=== PATIENT | female | born 1985 | race Two or more races ===

== ENCOUNTER 2017-07-30 22:58 | Emergency (ER) | payer SELFPAY ==
[2017-07-30 23:02] VITALS: BP 119/70
[2017-07-30] MEDS ORDERED: OXYCODONE-ACETAMINOPHEN 5-325 MG TABLET PO ONE (23:43)
[2017-07-30] MEDS ORDERED: PENICILLIN V POTASSIUM 500 MG TABLET PO ONE (23:43)
--- NOTE | 2017-07-30 23:44 | ER Document Report ---
ED Oral Problem - General Chief Complaint: Toothache Stated Complaint: TOOTHACHE Time Seen by Provider: 07/30/17 23:30 TRAVEL OUTSIDE OF THE U.S. IN LAST 30 DAYS: No - HPI Patient complains to provider of: Toothache - On and off for a month is been worse over the past couple of days Onset: Gradual Quality of pain: Achy, Throbbing Severity: Moderate Context: Fractured tooth. denies: Recent antibiotic use, Recent dental extractions, Recent yeast infection, Other Associated symptoms: Dental decay, Toothache. denies: Chills, Cough, Decreased appetite, Difficulty speaking, Drainage, Drooling, Earache, Facial pain, Fever, Headache, Jaw pain, Short of breath, Sweaty, Tongue swelling, Unable to swallow , White patches in mouth, Other Relieved by: Nothing Similar symptoms previously: No Recently seen / treated by doctor/dentist: No - Related Data Allergies/Adverse Reactions: No Known Allergies Allergy (Verified 07/30/17 23:00) Past Medical History - Social History Smoking Status: Never Smoker Chew tobacco use (# tins/day): No Frequency of alcohol use: None Family History: Reviewed & Not Pertinent Patient has suicidal ideation: No Patient has homicidal ideation: No Renal/ Medical History: Denies: Hx Peritoneal Dialysis Past Surgical History: Reports: Hx Tonsillectomy Review of Systems - Review of Systems Constitutional: No symptoms reported EENT: See HPI -: Yes All other systems reviewed and negative Physical Exam - Vital signs Vitals: Temp Pulse Resp BP Pulse Ox 97.6 F 78 18 119/70 100 07/30/17 23:00 07/30/17 23:00 07/30/17 23:00 07/30/17 23:00 07/30/17 23:00 - General General appearance: Appears well, Alert In distress: None - HEENT Mouth/Lips: Caries - Tooth 29 as well as 3031 and 32 with evidence of diffuse dental caries. No evidence of abscess or drainage., Dental fracture Mucous membranes: Moist Pharynx: Normal. No: Peritonsillar abscess, Retropharyngeal abscess, Potential airway comprom. Neck: Normal, Other - No evidence of Carlos's angina - Respiratory Respiratory status: No respiratory distress Chest status: Nontender Breath sounds: Normal Chest palpation: Normal - Cardiovascular Rhythm: Regular Heart sounds: Normal auscultation, S1 appreciated, S2 appreciated Gallop: None auscultated Course - Re-evaluation Re-evalutation: 07/31/17 01:32 Presentation is most consistent with likely an infected tooth. Airway is patent. Vitals within normal limits. Patient is able swallow without any difficulty. There is no significant facial swelling. Patient will be started on antibiotics. I've instructed to follow-up with dentistry as earliest ability for definitive management. Return precautions and follow-up recommendations have been discussed at length. - Vital Signs Vital signs: Temp Pulse Resp BP Pulse Ox 97.6 F 78 18 119/70 100 07/30/17 23:00 07/30/17 23:00 07/30/17 23:00 07/30/17 23:00 07/30/17 23:00 Discharge - Discharge Clinical Impression: Toothache Condition: Good Disposition: HOME, SELF-CARE Additional Instructions: TOOTHACHE: Your pain is due to dental decay. The tooth must be repaired in order for you to feel better. You will, therefore, be referred to a dentist. We do not have dentists on the staff at [facility]. Severe swelling or drainage around a tooth usually means a dental abscess. This also requires evaluation and treatment by the dentist, but antibiotics may be prescribed while awaiting dental treatment. You should be rechecked immediately if you develop major swelling of the face, increasing pain, a lump in the jaw or gums, headache, difficulty swallowing, or fever. PENICILLIN V K: You have been given a prescription for Penicillin VK. Your physician has determined that this is the best antibiotic for your condition. Pen VK can be taken with meals, however more of the antibiotic gets into the bloodstream if it's taken on an empty stomach. Penicillin usually has no side effects. However, allergy to penicillins is common. If you have had an allergic reaction to any drug of the penicillin family, you should never take any other penicillin. Notify your doctor at once if you develop hives, itching, swelling, faintness, or shortness of breath. FOLLOW-UP CARE: You have been referred for follow-up care to the dentists listed below. Call the dentists office for an appointment as you were instructed or within the next two days. If you experience worsening or a significant change in your symptoms, notify the physician immediately or return to the Emergency Department at any time for re-evaluation. [facility] [address] [place], [place] Rashi mornings, by appointment [facility] [address] [place] [address] [facility] [address] [facility] [address] [facility] [address] [email or web address] [address] [place] [address] Tuesday- 8:00am to 5:00 pm Will see patients from other [facility]. Charges based on income and family size and accepts Medicare, Medicaid, and Insurances Will pull molars [facility] [id number] Hours of Operation 8:00 am - 4:30 pm weekdays The following dental offices accept Medicaid: [facility] [address] Cardenas Dr. [address] Dr. Butler Jos Wadsworth L[place], and [facility] oral surgery Dr. Morris ([place]) Dr. Dockery ([place]) [facility] Drs. Gordillo and Mitch ([place]) Dr. Sargent ([place]) [facility] Dr. Ho ([place]) Drs. Saul and ([place]) Medicaid Care Line Prescriptions: Penicillin V Potassium [Penicillin Vk 500 mg Tablet] 500 mg PO BID #20 tablet
== END 2017-07-30 23:55 | disposition home or self-care (01) ==
LOC: ER 22:58
DX: K08.89 Other specified disorders of teeth and supporting structures (principal)
CPT/HCPCS: 99282

== ENCOUNTER 2017-08-01 21:56 | Emergency (ER) | payer MEDICAID ==
[2017-08-01] MEDS ORDERED: BUPIVACAINE HCL 0.5 % INJ/PF 30 ML SDV INJ ONE (23:55)
[2017-08-01] MEDS ORDERED: OXYCODONE-ACETAMINOPHEN 5-325 MG TABLET PO ONE (23:55)
--- NOTE | 2017-08-01 23:55 | ER Document Report ---
ED Oral Problem - General Chief Complaint: Dental Injury Stated Complaint: TOOTH PAIN Time Seen by Provider: 08/01/17 23:36 TRAVEL OUTSIDE OF THE U.S. IN LAST 30 DAYS: No - HPI Patient complains to provider of: Toothache Quality of pain: Achy, Throbbing Context: Recent antibiotic use - on antibiotics since tuesday Associated symptoms: Facial pain - right over the root of 28 Relieved by: Nothing Recently seen / treated by doctor/dentist: No - seeing her dentist tomorrow - Related Data Allergies/Adverse Reactions: No Known Allergies Allergy (Verified 07/30/17 23:00) Past Medical History - Social History Smoking Status: Never Smoker Family History: Reviewed & Not Pertinent Patient has suicidal ideation: No Patient has homicidal ideation: No Renal/ Medical History: Denies: Hx Peritoneal Dialysis Past Surgical History: Reports: Hx Tonsillectomy Review of Systems - Review of Systems Constitutional: No symptoms reported EENT: See HPI Cardiovascular: No symptoms reported Respiratory: No symptoms reported -: Yes All other systems reviewed and negative Physical Exam - Vital signs Vitals: Temp Pulse Resp BP Pulse Ox 98.4 F 90 18 125/97 H 100 08/01/17 22:14 08/01/17 22:14 08/01/17 22:14 08/01/17 22:14 08/01/17 22:14 - General General appearance: Appears well, Alert In distress: None - HEENT Sinus: Normal. No: Redness, Swelling, Tenderness Nasal: Normal. No: Bloody discharge, Raz deformity, Ecchymosis, Epistaxis, Purulent discharge, Septal hematoma, Swelling, Clear rhinorrhea, Other Mouth/Lips: Caries. No: Normal, Angioedema, Dental fracture, Laceration, Lesions, Other Mucous membranes: Normal Pharynx: Normal. No: Blood in hypopharynx, Erythema, Exudate, Peritonsillar abscess, Post nasal drainage, Retropharyngeal abscess, Tonsillar hypertrophy, Uvular edema, Potential airway comprom., Other Neck: Normal. No: Anterior cervical chain, Posterior cervical chain, Brudzinski , Carotid bruit, Kernig's, Lymphadenopathy, Meningismus, Neck mass, Shotty nodes , Subcutaneous emphysema, Supple, Thyroid nodule, Thyromegally, Other - Neurological Neuro grossly intact: Yes Cognition: Normal Orientation: AAOx4 [place] Coma Scale Eye Opening: Spontaneous [place] Coma Scale Verbal: Oriented [place] Coma Scale Motor: Obeys Commands Liana Coma Scale Total: 15 Speech: Normal Course - Re-evaluation Re-evalutation: 08/02/17 00:56 Presentation is most consistent with likely an infected tooth. Airway is patent. Vitals within normal limits. Patient is able swallow without any difficulty. There is no significant facial swelling. Patient will be started on antibiotics. I've instructed to follow-up with dentistry as earliest ability for definitive management. Return precautions and follow-up recommendations have been discussed at length. - Vital Signs Vital signs: Temp Pulse Resp BP Pulse Ox 98.4 F 87 18 125/77 100 08/02/17 00:11 08/02/17 00:11 08/02/17 00:11 08/02/17 00:11 08/02/17 00:11 Discharge - Discharge Clinical Impression: Toothache Condition: Good Disposition: HOME, SELF-CARE Instructions: Toothache ([facility])
[2017-08-02 01:15] VITALS: BP 118/78
== END 2017-08-02 01:00 | disposition home or self-care (01) ==
LOC: ER 21:56
DX: K08.89 Other specified disorders of teeth and supporting structures (principal)
CPT/HCPCS: 99282

== ENCOUNTER 2017-09-19 14:19 | Emergency (ER) | payer SELFPAY ==
--- NOTE | 2017-09-19 15:16 | ER Document Report ---
ED General - General Chief Complaint: Anxiety Stated Complaint: MEDICATION REFILL Time Seen by Provider: 09/19/17 14:44 Mode of Arrival: Ambulatory Information source: Patient Notes: 32-year-old female presents to ED for complaint of anxiety and mood disorder. She states she does not have any mental health diagnosis but sometimes around the holiday she has to get anxiety and nerve medicine. She states she just moved to this area and does not have a primary doctor or a mental health worker. TRAVEL OUTSIDE OF THE U.S. IN LAST 30 DAYS: No - HPI Onset: Other - This been going on and off for a long time Onset/Duration: Intermittent Quality of pain: No pain Severity: None Pain Level: Denies Associated symptoms: Other - Needs anxiety and nerve medicine because she snaps at people, snaps at her children, says she needs something for the kids to be able to stay in the house. Exacerbated by: Denies Relieved by: Denies Similar symptoms previously: Yes Recently seen / treated by doctor: Yes - Related Data Allergies/Adverse Reactions: No Known Allergies Allergy (Verified 09/19/17 14:27) Past Medical History - General Information source: Patient - Social History Smoking Status: Never Smoker Cigarette use (# per day): No Chew tobacco use (# tins/day): No Smoking Education Provided: No Frequency of alcohol use: None Drug Abuse: None Lives with: Family Family History: Reviewed & Not Pertinent Patient has suicidal ideation: No Patient has homicidal ideation: No - Past Medical History Cardiac Medical History: Reports: None Pulmonary Medical History: Reports: None EENT Medical History: Reports: None Neurological Medical History: Reports: None Endocrine Medical History: Reports: None Renal/ Medical History: Reports: None Malignancy Medical History: Reports: None GI Medical History: Reports: None Musculoskeltal Medical History: Reports None Skin Medical History: Reports None Psychiatric Medical History: Reports: None Traumatic Medical History: Reports: None Infectious Medical History: Reports: None Surgical Hx: Negative Past Surgical History: Reports: None, Hx Tonsillectomy - Immunizations Hx Diphtheria, Pertussis, Tetanus Vaccination: Yes Review of Systems - Review of Systems Constitutional: No symptoms reported EENT: No symptoms reported Cardiovascular: No symptoms reported Respiratory: No symptoms reported Gastrointestinal: No symptoms reported Genitourinary: No symptoms reported Female Genitourinary: No symptoms reported Musculoskeletal: No symptoms reported Skin: No symptoms reported Hematologic/Lymphatic: No symptoms reported Neurological/Psychological: Depression, Anxiety -: Yes All other systems reviewed and negative Physical Exam - Vital signs Vitals: Temp Pulse Resp BP Pulse Ox 98.2 F 94 18 142/82 H 100 09/19/17 14:29 09/19/17 14:29 09/19/17 14:29 09/19/17 14:29 09/19/17 14:29 Interpretation: Normal - General General appearance: Appears well, Alert - HEENT Head: Normocephalic, Atraumatic Eyes: Normal Pupils: PERRL - Respiratory Respiratory status: No respiratory distress Chest status: Nontender Breath sounds: Normal Chest palpation: Normal - Cardiovascular Rhythm: Regular Heart sounds: Normal auscultation Murmur: No - Abdominal Inspection: Normal Distension: No distension Bowel sounds: Normal Tenderness: Nontender Organomegaly: No organomegaly - Back Back: Normal, Nontender - Extremities General upper extremity: Normal inspection, Nontender, Normal color, Normal ROM , Normal temperature General lower extremity: Normal inspection, Nontender, Normal color, Normal ROM , Normal temperature, Normal weight bearing. No: Dhruv's sign - Neurological Neuro grossly intact: Yes Cognition: Normal Orientation: AAOx4 [place] Coma Scale Eye Opening: Spontaneous [place] Coma Scale Verbal: Oriented [place] Coma Scale Motor: Obeys Commands Liana Coma Scale Total: 15 Speech: Normal Motor strength normal: LUE, RUE, LLE, RLE Sensory: Normal - Psychological Associated symptoms: Normal affect, Normal mood, Anxious - Skin Skin Temperature: Warm Skin Moisture: Dry Skin Color: Normal Course - Re-evaluation Re-evalutation: 09/19/17 16:14 Consulted mental health. They recommended hydroxyzine 50 mg twice daily for 10 days while she can get into a mental health worker. She was given a list of the local mental health workers. - Vital Signs Vital signs: Temp Pulse Resp BP Pulse Ox 98.2 F 94 18 142/82 H 100 09/19/17 14:29 09/19/17 14:29 09/19/17 14:29 09/19/17 14:29 09/19/17 14:29 Discharge - Discharge Clinical Impression: Anxiety Condition: Stable Disposition: HOME, SELF-CARE Instructions: Anxiety (OM) Additional Instructions: Anxiety The physician feels that some of your health problems are being caused by anxiety. Anxiety affects your health in many ways. Anxiety alone can cause palpitations, sweats, chest pains, abdominal pains, shortness of breath, and headaches. It contributes to ulcer disease, high blood pressure, irritable bowel syndrome, and has been shown to cause flare-ups of many other diseases. Anxiety is not a simple disorder to treat. If the anxiety is due to recent life stresses, you may simply need time to "work through" the changes. If the anxiety is due to an underlying unhappiness with yourself or due to psychiatric disturbance, professional help will be needed. Your physician can refer you for further help if needed. Anti-anxiety medication is occasionally given if the stress is acute or if you are having trouble sleeping. Chronic or frequent use of these medications is not a good idea because the body becomes reliant on it, preventing you from dealing with life's normal stresses. You will be given a prescription for hydroxyzine or Vistaril that she can take every 8 hours for your anxiety. Please follow-up with the doctor suggested by the mental health worker and schedule an appointment as soon as possible. FOLLOW-UP CARE: If you have been referred to a physician for follow-up care, call the physician s office for an appointment as you were instructed or within the next two days. If you experience worsening or a significant change in your symptoms, notify the physician immediately or return to the Emergency Department at any time for re-evaluation. Prescriptions: Hydroxyzine Pamoate [Vistaril 50 mg Capsule] 50 mg PO Q8HP PRN #30 capsule PRN Reason: Anxiety Forms: Elevated Blood Pressure
--- NOTE | 2017-09-19 16:13 | PSYCHOLOGICAL NOTE ---
Psych Note - Psych Note Psych Note: Is a 32-year-old female who presents requesting a medication refill. Patient states she struggles with anxiety and was previously prescribed Valium and Ambien at the time of her 's 3 years ago. Patient states she took the medications for roughly 1 year and has been off of them for around 2 years. Patient states she and her significant other, who is bedside, recently relocated here from [place] and do not know any resources. Patient denies suicidal ideations and/or any prior attempts. Patient reports she feels anxious daily and has frequent mood swings with occasional outbursts towards her significant other. Patient reports she will be fine 1 minute and the next minute cursing and yelling at him and then crying the next. Patient states there is no known triggers. Patient reports she is agreeable to follow-up with therapy, which she felt states she did find helpful in the past (grief counseling). Patient reports she does not have insurance and would need to go to a state funded provider. Discussed with patient various local providers, and patient and significant other identified integrated family services. Encouraged patient to utilize their 24/7 mobile crisis should she feel she needs to talk with somebody after hours. Boyfriend states he had a discussion with the patient this morning that she either come and get help or the kids were getting go and stay with their grandmother. Boyfriend adamant she is not verbally and/or physically aggressive towards the kids. He states he simply wanted to allow her time to engage in treatment. Boyfriend states if any medications were to be provided, he would ensure she take them only as prescribed. He reports no further concerns in regards to suicidal ideations and/or thoughts of self-harm. Patient is alert and oriented. Mood is sad with occasionally tearful affect. Patient denies suicidal/homicidal ideations, intent, plan, means. Patient denies A/VH; delusions not noted. Thought processes were organized. Conversational speech was within normal limits for rate, tone, and prosody. Intellectual abilities were estimated within average range. Attention and focus were fair. Insight, judgment, impulse control were fair to poor. Unspecified depressive disorder, per history Rule out bipolar disorder Patient is psychiatrically cleared. Discussed with patient and boyfriend various local providers, and they have identified integrated family services whom they will contact immediately upon discharge. Additionally discussed various coping skills with the patient to assist her in managing her anxiety and mood lability. Patient denies suicidal and homicidal ideations. Collateral information substantiates this. I consulted with Dr. Ch in regards to the care management of this patient. ED provider made aware and reports part of the plan of care will include a week's prescription of Vistaril to assist her in managing her symptoms.
[2017-09-19 16:35] VITALS: BP 120/79
== END 2017-09-19 16:23 | disposition home or self-care (01) ==
LOC: ER 14:19
DX: F41.9 Anxiety disorder, unspecified (principal)
CPT/HCPCS: 99284

== ENCOUNTER 2017-12-24 12:42 | Emergency (ER) | payer SELFPAY ==
--- NOTE | 2017-12-24 14:53 | ER Document Report ---
ED Medical Screen (RME) - General Chief Complaint: Psych Problem Stated Complaint: PHSYC Time Seen by Provider: 12/24/17 14:43 Mode of Arrival: Ambulatory Information source: Patient TRAVEL OUTSIDE OF THE U.S. IN LAST 30 DAYS: No - HPI Onset: Other - SEVERAL DAYS Onset/Duration: Gradual, Waxing and waning Context: Patient has history of depression, formerly on meds for same. Now has been out of meds for approximately 1 year. Mood has been worsening over the past week or so, thought to be related to anniversary of a tragic event 3 years ago. Quality of pain: No pain Associated Symptoms: Other - SUICIDAL IDEATION Exacerbated by: Denies Relieved by: Denies Similar symptoms previously: Yes Recently seen / treated by doctor: No - Related Data Smoking: Non-smoker Frequency of alcohol use: None Drug Abuse: None Allergies/Adverse Reactions: No Known Allergies Allergy (Verified 12/24/17 12:43) Past Medical History - General Information source: Patient - Social History Cigarette use (# per day): No Chew tobacco use (# tins/day): No Frequency of alcohol use: None Drug Abuse: None Lives with: Family - CHILDREN Family history: None - Past Medical History Cardiac Medical History: Reports: None Pulmonary Medical History: Reports: None Neurological Medical History: Reports: None Endocrine Medical History: Reports: None Renal/ Medical History: Reports: None. Denies: Hx Peritoneal Dialysis Malignancy Medical History: Reports: None GI Medical History: Reports: None Musculoskeltal Medical History: Reports None Psychiatric Medical History: Reports: None Past Surgical History: Reports: Hx Tonsillectomy, Hx Tubal Ligation - Immunizations Hx Diphtheria, Pertussis, Tetanus Vaccination: Yes Review of Systems - Review of Systems Constitutional: No symptoms reported EENT: No symptoms reported Cardiovascular: No symptoms reported Respiratory: No symptoms reported Gastrointestinal: No symptoms reported Female Genitourinary: No symptoms reported. denies: Hematologic/Lymphatic: No symptoms reported Physical Exam - Vital signs Vitals: Temp Pulse Resp BP Pulse Ox 97.7 F 106 H 22 H 127/92 H 100 12/24/17 12:48 12/24/17 12:48 12/24/17 12:48 12/24/17 12:48 12/24/17 12:48 Interpretation: Hypertensive, Tachycardic, Tachypneic - General General appearance: Anxious In distress: None - HEENT Head: Normocephalic Eyes: Normal Conjunctiva: Normal Ears: Normal Nasal: Normal Mouth/Lips: Normal Mucous membranes: Normal Pharynx: Normal Neck: Normal - Respiratory Respiratory status: No respiratory distress Breath sounds: Normal - Cardiovascular Rhythm: Regular Heart sounds: Normal auscultation Murmur: No - Back Back: Normal - Extremities General upper extremity: Normal inspection General lower extremity: Normal inspection - Neurological Neuro grossly intact: Yes Cognition: Normal Orientation: AAOx4 - Psychological Associated symptoms: Normal affect, Normal mood - Skin Skin Temperature: Warm Skin Moisture: Dry Skin Color: Normal Skin Turgor: Elastic Course - Vital Signs Vital signs: Temp Pulse Resp BP Pulse Ox 97.7 F 106 H 22 H 127/92 H 100 12/24/17 12:48 12/24/17 12:48 12/24/17 12:48 12/24/17 12:48 12/24/17 12:48 Doctor's Discharge - Discharge Clinical Impression: Depression Qualifiers: Depression Type: unspecified Qualified Code(s): F32.9 - Major depressive disorder, single episode, unspecified
[2017-12-24 16:05] LABS: APPEARANCE,URINE CLEAR; BILIRUBIN,URINE NEGATIVE (NEGATIVE); COLOR,URINE STRAW; GLUCOSE, URINE NEGATIVE (NEGATIVE); KETONES,URINE NEGATIVE (NEGATIVE); LEUKOCYTE ESTERASE,URINE TRACE (NEGATIVE); NITRITE,URINE NEGATIVE (NEGATIVE); PROTEIN,URINE NEGATIVE (NEGATIVE); URINE SPECIFIC GRAVITY 1.011; UROBILINOGEN,URINE NEGATIVE mg/dL (<2.0)
[2017-12-24 16:13] LABS: ABSOLUTE EOSINOPHILS # (AUTO) 0.3 10^3/uL (0.0-0.6); ABSOLUTE LYMPHOCYTES (AUTO) 2.9 10^3/uL (0.5-4.7); ABSOLUTE MONOCYTES (AUTO) 0.5 10^3/uL (0.1-1.4); ABSOLUTE NEUT (AUTO) 5.8 10^3/uL (1.7-8.2); BASOPHILS % (AUTO) 0.3 % (0-2); EOSINOPHILS % (AUTO) 2.7 % (0-6); HEMATOCRIT 40.9 % (36.0-47.0); HEMOGLOBIN 13.8 g/dL (12.0-15.5); LYMPHOCYTES % (AUTO) 30.9 % (13-45); MEAN CORPUSCULAR HEMOGLOBIN 29.5 pg (27.0-33.4); MEAN CORPUSCULAR HGB CONC 33.7 g/dL (32.0-36.0); MEAN CORPUSCULAR VOLUME 88 fl (80-97); MONOCYTES % (AUTO) 4.9 % (3-13); PLATELET COUNT 205 10^3/uL (150-450); RED BLOOD COUNT 4.67 10^6/uL (3.72-5.28); SEGMENTED NEUTROPHILS % (AUTO) 61.2 % (42-78); TOTAL CELLS COUNTED % (AUTO) 100 %; WHITE BLOOD COUNT 9.5 10^3/uL (4.0-10.5)
[2017-12-24 16:20] LABS: ALANINE AMINOTRANSFERASE 20 U/L (9-52); ALBUMIN 3.4 g/dL (3.5-5.0); ALKALINE PHOSPHATASE 47 U/L (38-126); ANION GAP 6 (5-19); ASPARTATE AMINO TRANSFERASE 17 U/L (14-36); BILIRUBIN,TOTAL 0.2 mg/dL (0.2-1.3); BLOOD UREA NITROGEN 12 mg/dL (7-20); CARBON DIOXIDE 24 mmol/L (22-30); CHLORIDE 108 mmol/L (98-107); GLUCOSE 87 mg/dL (75-110); POTASSIUM 4.8 mmol/L (3.6-5.0); SODIUM 138.4 mmol/L (137-145); TOTAL PROTEIN 5.6 g/dL (6.3-8.2)
[2017-12-24 16:23] LABS: ACETAMINOPHEN < 10 ug/mL (10-30); ALCOHOL < 10 mg/dL (NONE DETECTED); SALICYLATE < 1.0 mg/dL (2.0-20.0)
[2017-12-24 16:28] LABS: URINE AMPHETAMINES SCREEN NEGATIVE; URINE BARBITURATES SCREEN NEGATIVE; URINE BENZODIAZEPINES SCREEN NEGATIVE; URINE COCAINE SCREEN NEGATIVE; URINE MARIJUANA (THC) SCREEN NEGATIVE; URINE METHADONE SCREEN NEGATIVE; URINE PHENCYCLIDINE SCREEN NEGATIVE
--- NOTE | 2017-12-24 16:55 | PSYCHOLOGICAL NOTE ---
Psych Note - Psych Note Psych Note: Reason for consult: Suicidal ideation Pt states that she has been trying to get in with mental health and has not been able to. Pt states that it is close to the anniversary of the of her , 12/25/17. Pt stated that she has had thoughts about hurting herself, not killing herself because she has children. Pt states that she is having terrible mood swings and irrational thoughts. Patient disclosed it is coming up with the 3rd anniversary of her 's . She has been depressed and having difficulties controlling her mood. Patient denies suicidal ideation. Patient disclosed 2 previous inpatient psychiatric stays after each child (10 years ago and 14 years ago). Patient disclosed they were because of depression. Patient reports that she had previously been on Effexor, Ambien, and Valium as needed. She has been having difficulty getting into psychiatric services locally and knows medication has worked in the past; "I just get a prescription for the medication I will be good." Patient is alert and orientated to person, place, time and circumstance. Mood is euthymic with restricted affect. Patient denies suicidal and homicidal ideation. Delusions are absent behaviors congruent with intact reality based presentation i.e. organized, linear, rational thinking. Conversational speech was within normal rate, tone and prosody. Eye contact was well-maintained. Intellectual abilities appear to be within the average range. Attention and concentration were good. Insight, judgment, impulse control are good. Medication recommendations per [facility] was contracted psychiatrist ,Natalie MORRIS, are as follows: 1. Effexor 37.5 mg daily 2. BuSpar 5 mg twice daily Diagnosis 311 (F32.9) unspecified depressive disorder Impression\\plan: Patient is considered psychiatrically clear. Patient does not meet IVC criteria per [place] GS 122C. Patient discloses that she is having increased depression with upcoming anniversary to her 's 3 years previous. Patient denies suicidal ideation. Patient states she has been having difficulty getting into a psychiatric treatment and needs to get back on her medications. Patient disclosed she knows her medication has worked in the past. Dr. Ch was consulted and the care management this patient; attending physician is agreement with recommendations and disposition per
--- NOTE | 2017-12-24 17:34 | ER Document Report ---
ED Psych Disorder / Suicide <LORA GALARZA - Last Filed: 12/24/17 17:38> - General Mode of Arrival: Ambulatory TRAVEL OUTSIDE OF THE [place] IN LAST 30 DAYS: No <TERE THURSTON - Last Filed: 12/24/17 20:09> - General Chief Complaint: Psych Problem Stated Complaint: [facility] Time Seen by Provider: 12/24/17 14:43 Notes: Patient patient is here with complaint of depression. Patient says that her 3 years ago on this date and it affects her this way every year on that anniversary date. She is feeling depressed, but denies feeling suicidal. She used to be on medications for her depression, but has recently relocated here and does not have a local physician to write prescriptions or to consult with. She denies abdominal pain, chest pain, shortness of breath, etc. No recent illness or fever. Denies any feelings of wanting to harm herself. ( TERE THURSTON) - Related Data Allergies/Adverse Reactions: No Known Allergies Allergy (Verified 12/24/17 12:43) Past Medical History - General Information source: Patient - Social History Smoking Status: Never Smoker Cigarette use (# per day): No Chew tobacco use (# tins/day): No Frequency of alcohol use: None Drug Abuse: None Lives with: Family - CHILDREN Family History: Reviewed & Not Pertinent Patient has suicidal ideation: No Patient has homicidal ideation: Yes - Past Medical History Cardiac Medical History: Reports: None Pulmonary Medical History: Reports: None Neurological Medical History: Reports: None Endocrine Medical History: Reports: None Renal/ Medical History: Reports: None Malignancy Medical History: Reports: None GI Medical History: Reports: None Musculoskeltal Medical History: Reports None Psychiatric Medical History: Reports: None, Hx Depression Past Surgical History: Reports: Hx Tonsillectomy, Hx Tubal Ligation - Immunizations Hx Diphtheria, Pertussis, Tetanus Vaccination: Yes <TERE THURSTON - Last Filed: 12/24/17 20:09> Review of Systems <LORA GALARZA - Last Filed: 12/24/17 17:38> <TERE THURSTON - Last Filed: 12/24/17 20:09> - Review of Systems Notes: CONSTITUTIONAL : Denies fever. CARDIOVASCULAR: Denies chest pain. RESPIRATORY: Denies cough, chest congestion, or shortness of breath. GASTROINTESTINAL: Denies abdominal pain or nausea, vomiting, or diarrhea. GENITOURINARY: Denies difficulty or painful urinating, urinary frequency, blood in urine. Psychiatric: See HPI. Depression but no suicidal ideation. (TERE THURSTON) Physical Exam <LORA GALARZA - Last Filed: 12/24/17 17:38> - Vital signs Interpretation: Normal <TERE THURSTON - Last Filed: 12/24/17 20:09> - Vital signs Vitals: Temp Pulse Resp BP Pulse Ox 97.7 F 106 H 22 H 127/92 H 100 12/24/17 12:48 12/24/17 12:48 12/24/17 12:48 12/24/17 12:48 12/24/17 12:48 - Notes Notes: PHYSICAL EXAMINATION: GENERAL: Well-appearing, no acute distress. HEAD: Atraumatic, normocephalic. NECK: Normal range of motion, supple. LUNGS: Breath sounds clear and equal bilaterally. HEART: Regular rate and rhythm without murmurs heard. ABDOMEN: Soft, nontender. No guarding or rebound or masses felt. Psychiatric: Patient appears depressed, somewhat subdued, slightly tearful. Denies suicidal ideation and I do not think she is suicidal. (TERE THURSTON) Course - Laboratory Result Diagrams: 12/24/17 15:42 12/24/17 15:42 <LORA GALARZA - Last Filed: 12/24/17 17:38> - Laboratory Result Diagrams: 12/24/17 15:42 12/24/17 15:42 <TERE THURSTON - Last Filed: 12/24/17 20:09> - Re-evaluation Re-evalutation: 12/24/17 20:08 Mental health was asked to assess the patient. They did so and feel that she can be treated as an outpatient as she does not express any suicidal thoughts. She will be started on Effexor and BuSpar. A 10 day supply will be prescribed. (TERE THURSTON) - Vital Signs Vital signs: Temp Pulse Resp BP Pulse Ox 97.4 F 153 H 20 116/75 100 12/24/17 17:46 12/24/17 17:46 12/24/17 17:46 12/24/17 17:46 12/24/17 17:46 - Laboratory Laboratory results interpreted by me: 12/24/17 12/24/17 15:42 15:42 Chloride 108 H Total Protein 5.6 L Albumin 3.4 L Urine Blood SMALL H Ur Leukocyte Esterase TRACE H Salicylates < 1.0 L Acetaminophen < 10 L Discharge <LORA GALARZA - Last Filed: 12/24/17 17:38> <TERE THURSTON - Last Filed: 12/24/17 20:09> - Discharge Clinical Impression: Depression Qualifiers: Depression Type: unspecified Qualified Code(s): F32.9 - Major depressive disorder, single episode, unspecified Condition: Stable Disposition: HOME, SELF-CARE Additional Instructions: DEPRESSION: Your evaluation reveals that you have mental depression. While symptoms may be vague, they often include disturbance of sleep, fatigue, loss of appetite , and general loss of interest in life. While depression may be a side effect of drugs, or a reaction to a major change in your life, many cases have no known cause. If depression is acute, and related to a major loss in your life, you can expect it to clear completely with time. If you have been depressed a long time , are prone to repeated bouts of depression or low mood, or have been thinking of suicide, get help. Depression can be treated with anti-depressant medication and counselling. Long-term depression will often take a few weeks to clear, even with appropriate medication. Follow-up care is important. FOLLOW-UP CARE: Please follow-up with [facility] within 3-5 days for continued outpatient mental health services. You have been prescribed Effexor 37.5 mg daily and BuSpar 5 mg twice daily; please take as prescribed. ~ If you experience worsening or a significant change in your symptoms, notify the physician immediately or return to the Emergency Department at any time for re- evaluation. Prescriptions: Buspirone HCl [Buspar 5 mg Tablet] 1 tab PO BID #20 tab Venlafaxine HCl ER [Effexor Xr 37.5 mg Cap.sr] 37.5 mg PO DAILY #10 cap.sr.24h Referrals: [facility] [Outside] - Follow up as needed [facility] [Outside] - Follow up in 3-5 days
[2017-12-24 17:51] VITALS: BP 116/75
== END 2017-12-24 17:52 | disposition home or self-care (01) ==
LOC: ER 12:42
DX: F32.9 Major depressive disorder, single episode, unspecified (principal); R45.851 Suicidal ideations
CPT/HCPCS: 36415; 80053; 80307; 81001; 84703; 85025; 99285